=== PATIENT | male | born 1965 | race Caucasian/White ===

== ENCOUNTER → 2021-12-24 | Outpatient (CLI) | payer OTHER | LOC: RAD 08:05 | DX: M16.12 Unilateral primary osteoarthritis, left hip (principal); M87.852 Other osteonecrosis, left femur | CPT/HCPCS: 73722; A9577; Q9967 ==

== ENCOUNTER → 2022-02-03 | Outpatient (CLI) | payer OTHER ==
[~2022-02-03] MED LIST: FINASTERIDE5 MG PO; FLOMAX0.4 MG PO; HYDROCHLOROTH12.5 MG PO; METOPROLOL TART50 MG PO
[2022-02-03 13:43] LABS: HEMOGLOBIN 14.4 gm/dl (14.0-17.5); RED BLOOD COUNT 4.38 M/UL (4.20-5.50)
[2022-02-03 14:08] LABS: BUN/CREATININE RATIO 15 (0-10)
== END ==
LOC: EDSTATUS 12:30 → OPSV2 12:30
PROVIDERS: Orthopaedic Surgery
DX: Z01.812 Encounter for preprocedural laboratory examination (principal); M16.12 Unilateral primary osteoarthritis, left hip
CPT/HCPCS: 80048; 85025

== ENCOUNTER → 2022-02-15 | Outpatient (CLI) | payer OTHER ==
[~2022-02-15] MED LIST changes: +ASPIR-TRIN325 MG PO; +HYDROCODON-ACE1 EAC6 PO
[2022-02-15 12:07] LABS: BUN/CREATININE RATIO 11 (0-10)
== END ==
LOC: LAB 11:18
PROVIDERS: Orthopaedic Surgery
DX: Z01.812 Encounter for preprocedural laboratory examination (principal); M16.12 Unilateral primary osteoarthritis, left hip
CPT/HCPCS: 36415; 80048; 86850; 86900; 86901

== ENCOUNTER → 2022-02-16 | Day surgery (SDC) | payer OTHER ==
[~2022-02-16] VITALS: Ht 188 cm; Wt 98.4 kg
== END | disposition home or self-care (01) ==
LOC: OR 06:35
DX: M16.12 Unilateral primary osteoarthritis, left hip (principal); I10 Essential (primary) hypertension; G89.18 Other acute postprocedural pain; Z79.899 Other long term (current) drug therapy
CPT/HCPCS: 73502; 76000; 97116; 97161; 97165; C1776; J0171; J0690; J1100; J1170; J2001; J2250; J2370; J2405; J2704; J2795; J3010; J7050